=== PATIENT | male | born 1950 | race Caucasian/White ===

== ENCOUNTER 2017-07-24 13:31 | Day surgery (SDC) | payer MEDICARE ==
[~2017-07-24] VITALS: Ht 188 cm; Wt 105.6 kg
[~2017-07-24 13:31] MED LIST: Fish Oil 10001000 MG; ZESTORETIC 20-251 EA
== END 2017-07-24 16:00 | disposition home or self-care (01) ==
LOC: ORSCSDS 13:31
PROVIDERS: Internal Medicine Gastroenterology
PROC: 0DBK8ZX Excision of Ascending Colon, Via Natural or Artificial Opening Endoscopic, Diagnostic (ICD-10-PCS; principal; 2017-07-24 14:45)
PROC: 0DBL8ZX Excision of Transverse Colon, Via Natural or Artificial Opening Endoscopic, Diagnostic (ICD-10-PCS; principal; 2017-07-24 14:45)
DX: Z12.11 Encounter for screening for malignant neoplasm of colon (principal); D12.2 Benign neoplasm of ascending colon; K63.5 Polyp of colon; K64.8 Other hemorrhoids; E11.9 Type 2 diabetes mellitus without complications; I10 Essential (primary) hypertension; Z87.891 Personal history of nicotine dependence; Z79.899 Other long term (current) drug therapy
CPT/HCPCS: 82947; 88305; J7120

== ENCOUNTER 2019-02-03 08:26 | Day surgery (SDC) | payer MEDICARE ==
[~2019-02-03] VITALS: Ht 188 cm; Wt 101.5 kg
[~2019-02-03 08:26] MED LIST changes: +DICLOFENAC SOD100 G1 TOP; +THERA1 EACH PO; +ZESTORETIC 20-121 EA PO
--- NOTE | 2019-02-03 09:23 | NUR ---
Ambulatory in Day Surgery History, Chart, Medications and Allergies reviewed before start of procedure. Lungs clear T/O to Auscultation. Patient confirms NPO status and agrees with scheduled surgery. Pre-Op teaching done. Pt verbalizes understanding.
--- NOTE | 2019-02-03 15:04 | NUR ---
PT ARRIVED TO UNIT AT APROX 1445 FROM PACU. AQUACEL DRESSING TO R KNEE C/D/I, POLAR PACK/SCD'S IN PLACE. PT RATES PAIN 5/10-REPORTS TOLERABLE AT THIS TIME.
--- NOTE | 2019-02-03 18:09 | NUR ---
SHIFT SUMMARY PT POD 0 R TKA. PT MEDICATED FOR PAIN WITH SCHEDULED TYLENOL/TORADOL AND 2 ROXICODONE ONCE. NAUSEATED-MEDICATED WITH 4MG IV ZOFRAN. UP WITH THERAPY AND IN CHAIR, SBA W/FWW TO BATHROOM. VOIDING. CONTINUOUS ICE THERAPY, SCD'S IN PLACE.
[2019-02-04 04:27] LABS: BASOPHILS ABSOLUTE AUTO 0.01 K/mm3 (0.00-0.23); BASOPHILS PERCENT AUTO 0 % (0-2); EOSINOPHILS ABSOLUTE AUTO 0.01 K/mm3 (0.00-0.68); EOSINOPHILS PERCENT AUTO 0 % (0-6); Hematocrit 37.5 % (37.0-53.0); Hemoglobin 13.4 g/dL (13.5-17.5); IMMATURE GRAN ABSOLUTE AUTO 0.04 K/mm3 (0.00-0.10); IMMATURE GRAN PERCENT AUTO 0 % (0-1); LYMPHOCYTES ABSOLUTE AUTO 0.81 K/mm3 (0.84-5.20); LYMPHOCYTES PERCENT AUTO 9 % (21-46); MONOCYTES ABSOLUTE AUTO 0.76 K/mm3 (0.16-1.47); MONOCYTES PERCENT AUTO 8 % (4-13); Mean Corpuscular HGB 32.9 pg (26.0-34.0); Mean Corpuscular HGB Conc 35.7 g/dL (31.5-36.5); Mean Corpuscular Volume 92 fL (80-100); Mean Platelet Volume 9.2 fL (9.1-12.4); NEUTROPHILS ABSOLUTE AUTO 7.37 K/mm3 (1.96-9.15); NEUTROPHILS PERCENT AUTO 82 % (41-73); Platelet Count 156 K/mm3 (150-400); RDW Coefficient Variation 11.9 % (11.7-14.2); RDW Standard Deviation 39.6 fL (35.1-46.3); Red Blood Cell Count 4.07 M/mm3 (4.30-5.90)
--- NOTE | 2019-02-04 04:33 | NUR ---
SHIFT SUMMARY: PT POD #1 FOR RT TKA. AQUACEL CDI WITH POLAR PACK IN PLACE. PAIN MANAGED WITH 1 OXY AND SCHED TORADOL + TYLENOL PER EMAR. PT AMBULATED GAXIOLA ONCE. OUT OF BED TO BATHROOM T/O SHIFT WITH SBA AND FWW. GIVEN REGLAN FOR C/O OF NAUSEA ONCE. MILES REG DIET. COVERED WITH INSULIN PER SLIDING SCALE. PLAN FOR POSSIBLE DISCHARGE TODAY.
[2019-02-04 04:42] LABS: Anion Gap 6 mmol/L (6-16); Blood Urea Nitrogen 20 mg/dL (8-24); Bun/Creatinine Ratio 18.3 (12.0-20.0); CO2, Blood 27 mmol/L (21-32); Calcium, Blood 8.4 mg/dL (8.5-10.1); Chloride, Blood 103 mmol/L (98-108); Creatinine, Blood 1.09 mg/dL (0.60-1.20); Glomerular Filtration Rate >60 (60-); Glucose, Blood 174 mg/dL (70-99); Magnesium, Blood 1.8 mg/dL (1.6-2.4); Potassium, Blood 4.1 mmol/L (3.5-5.5); Sodium, Blood 136 mmol/L (136-145)
[2019-02-04] MEDS ORDERED: OXYC5 PO (07:45)
[2019-02-04] MEDS ORDERED: ASPI325EC PO (08:59)
[2019-02-04] MEDS ORDERED: ACET500 PO (08:59)
--- NOTE | 2019-02-04 09:28 | NUR ---
DISCHARGE PT AND EDUCATED ON AND RECEIVED PRINTED DC INSTRUCTIONS AND VERB AN UNDERSTANDING. HARD RX FOR OXYCODONE GIVEN TO PT. X2 AQUACEL DRESSINGS GIVEN TO PT. PT AND VERB THAT THEY HAVE AN UNDERSTANDING ON HOW TO USE THE POLAR PACK. F/U APPT IN PLACE. IV DC'D. PT SENT HOME WITH ALL PERSONAL BELONGINGS AND ESCORTED OUT VIA W/C.
== END 2019-02-04 09:22 | disposition home or self-care (01) ==
LOC: ORSCMMR 08:26 → ORD 10:45 → SURS 14:45 → ORSCMMR 02-04 09:22 → SURS 02-04 09:22 → ORD 03-07 07:30
PROVIDERS: Orthopaedic Surgery
PROC: 0SRC0J9 Replacement of Right Knee Joint with Synthetic Substitute, Cemented, Open Approach (ICD-10-PCS; principal; 2019-02-03 10:45)
DX: M17.11 Unilateral primary osteoarthritis, right knee (principal); I10 Essential (primary) hypertension; E11.9 Type 2 diabetes mellitus without complications; Z79.899 Other long term (current) drug therapy
CPT/HCPCS: 36415; 73560-RT; 80048; 82947; 83735; 85025; 88300; 97110; 97116; 97162; 97530; C1713; C1776; J0171; J0690; J0735; J1100; J1815; J1885; J2250; J2405; J2704; J2765; J2795; J3010; J7120

== ENCOUNTER 2020-06-14 22:02 | Emergency (ER) | payer MEDICARE ==
[~2020-06-14] VITALS: Ht 185.4 cm; Wt 101.6 kg
[~2020-06-14 22:02] MED LIST changes: +ACET500 PO; +ASPI325EC PO; +OXYC5 PO
[2020-06-14 22:29] LABS: Source, Urine Catheter
[2020-06-14 22:32] LABS: Appearance, Urine Hazy (Clear); Bilirubin, Urine Neg (Neg); Blood, Urine 5+ (Neg); Color, Urine Yellow (P-Yellow); Glucose Qualitative, Urine 1+ (Neg); Ketones, Urine 1+ (Neg); Leukocyte Esterase, Urine 1+ (Neg); Nitrite, Urine Neg (Neg); Protein, Urine 3+ (Neg); Urobilinogen, Urine NORM (Normal)
[2020-06-14 23:02] LABS: Bacteria Mod /hpf; Red Blood Cells, Urine 50-100 /hpf (0-2); Squamous Epithelial Cells Rare /hpf (Few)
[2020-06-17] MEDS ORDERED: BELPTAB PO (08:24)
== END 2020-06-14 22:56 | disposition home or self-care (01) ==
LOC: ER 22:02
PROVIDERS: Physician Assistant
DX: R33.9 Retention of urine, unspecified (principal); Z79.82 Long term (current) use of aspirin; Z79.899 Other long term (current) drug therapy
CPT/HCPCS: 51702; 81001; 87086; 99283-25

== ENCOUNTER 2020-06-17 09:34 | Emergency (ER) | payer MEDICARE ==
[~2020-06-17] VITALS: Ht 185.4 cm; Wt 101.6 kg
[~2020-06-17 09:34] MED LIST changes: +BELPTAB PO
[2020-06-17] MEDS ORDERED: CIPR500 PO (15:53)
== END 2020-06-17 10:37 | disposition home or self-care (01) ==
LOC: ER 09:34
DX: T83.031A Leakage of indwelling urethral catheter, initial encounter (principal); Z79.899 Other long term (current) drug therapy; Z79.82 Long term (current) use of aspirin; Z98.890 Other specified postprocedural states
CPT/HCPCS: 51700; 99282-25

== ENCOUNTER 2020-06-17 12:42 | Emergency (ER) | payer MEDICARE ==
[~2020-06-17] VITALS: Ht 185.4 cm; Wt 101.6 kg
[2020-06-17 15:31] LABS: Source, Urine Catheter
[2020-06-17 15:33] LABS: Appearance, Urine Cloudy (Clear); Bilirubin, Urine Neg (Neg); Blood, Urine 5+ (Neg); Color, Urine Red (P-Yellow); Glucose Qualitative, Urine Neg (Neg); Ketones, Urine Neg (Neg); Leukocyte Esterase, Urine 3+ (Neg); Nitrite, Urine Neg (Neg); Protein, Urine 3+ (Neg); Specific Gravity, Urine 1.015 (1.003-1.022); Urobilinogen, Urine NORM (Normal)
[2020-06-17 15:45] LABS: Bacteria Mod /hpf; Red Blood Cells, Urine TNTC /hpf (0-2); Squamous Epithelial Cells Not Seen /hpf (Few)
[2020-06-17] MEDS ORDERED: CIPR500 PO (15:53)
== END 2020-06-17 16:06 | disposition home or self-care (01) ==
LOC: ER 12:42
PROVIDERS: Physician Assistant
DX: N39.0 Urinary tract infection, site not specified (principal); Z79.82 Long term (current) use of aspirin; Z79.899 Other long term (current) drug therapy
CPT/HCPCS: 81001; 87077; 87086; 87186; 99283-25

== ENCOUNTER 2023-07-17 07:47 | Day surgery (SDC) | payer MEDICARE ==
[~2023-07-17] VITALS: Ht 188 cm; Wt 87.5 kg
[~2023-07-17 07:47] MED LIST changes: +CIPR500 PO; +METO25ER PO; +TAMS.4ER PO
[2023-07-17 09:14] VITALS: BP 139/77
--- NOTE | 2023-07-17 09:53 | NUR ---
07/17/23 0953 Lorraine Avila HISTORY, CHART, MEDICATIONS AND ALLERGIES REVIEWED BEFORE START OF PROCEDURE. PATIENT CONFIRMS NPO STATUS AND AGREES WITH SCHEDULED PROCEDURE. 3-LEAD EKG REVIEWED WITH PHYSICIAN PRIOR TO START OF PROCEDURE. MONITOR INTACT WITH CONTINUOUS PULSE OXIMETRY,CAPNOGRAPHY, 3-LEAD EKG, INTERMITTENT BP. SUPPLEMENTAL O2 TO BE TITRATED THROUGHOUT PROCEDURE TO MAINTAIN O2 SATURATION ABOVE 90%. PATIENT DETERMINED TO BE ASA APPROPRIATE FOR PROPOFOL SEDATION PRIOR TO START OF PROCEDURE BY DR. ROSE. MALLAMPATI CLASS 2 AIRWAY: COMPLETE VISUALIZATION OF THE UVULA.
[2023-07-17 10:22] VITALS: BP 119/99
[2023-07-17 10:30] VITALS: BP 119/70
--- NOTE | 2023-07-17 10:42 | NUR ---
Patient up to Ambulate independently. Gait steady. Discharge instructions reviewed with patient. Patient verbalizes understanding. Copy given to patient to take home. Patient States Post-Procedure ride home has been arranged with . Discharged via wheelchair to private car for ride home.
== END 2023-07-17 10:42 | disposition home or self-care (01) ==
LOC: ORSCMMR 07:47 → ORD 09:30 → ORSCMMR 10:42
PROVIDERS: Internal Medicine Gastroenterology
PROC: 0DBN8ZX Excision of Sigmoid Colon, Via Natural or Artificial Opening Endoscopic, Diagnostic (ICD-10-PCS; principal; 2023-07-17 09:30)
PROC: 0DBL8ZX Excision of Transverse Colon, Via Natural or Artificial Opening Endoscopic, Diagnostic (ICD-10-PCS; principal; 2023-07-17 09:30)
DX: Z12.11 Encounter for screening for malignant neoplasm of colon (principal); Z86.010 Personal history of colon polyps; Z86.79 Personal history of other diseases of the circulatory system; K63.5 Polyp of colon; E11.9 Type 2 diabetes mellitus without complications; Z79.899 Other long term (current) drug therapy
CPT/HCPCS: 82947; 88305; J2704; J7120

== ENCOUNTER 2024-05-17 17:45 | Observation (INO) | payer MEDICARE ==
[~2024-05-17] VITALS: Ht 188 cm; Wt 90.5 kg
[~2024-05-17 17:45] MED LIST changes: +CefTRIAXone Sodium 1,000 MG in NS 100 ML IV ONE; -HYDR1TAB94 PO
[2024-05-17] MEDS ORDERED: CefTRIAXone Sodium 1,000 MG in NS 100 ML IV ONE (18:40)
[2024-05-17] MEDS ORDERED: MetroNIDAZOLE 500MG/NS 100 ml 100 ML IV ONE (18:40)
[2024-05-17] MEDS ORDERED: Ketorolac Tromethamine 15mg Vial IV ONE (19:05)
[2024-05-17] MEDS ORDERED: Morphine Sulfate 4 MG/1 ML Injection IV PRN (20:10)
[2024-05-17] MEDS ORDERED: Ondansetron HCl 2 MG / ML 2ML Vial IV PRN (20:10)
[2024-05-17] MEDS ORDERED: NS 1,000 ML IV SCH ×2 (20:15→22:25)
[2024-05-17 21:15] VITALS: BP 117/84
[2024-05-17] MEDS ORDERED: FLU VACC TS2024-25(6MOS UP)/PF 45 MCG/0.5 ML SYRINGE IM ONE (21:45)
--- NOTE | 2024-05-17 21:50 | NUR ---
ARRIVAL PT NEW ADMIT FROM ER. ARRIVED A/OX4, INDEP IN ROOM. PT REPORTS HIP TO HIP LOWER ABD DISCOMFORT. DENIES PASSING FLATTUS TODAY, 1 EPISODE OF EMESIS. PLAN TO BE NPO AT 0000 FOR SURGERY IN THE AM.
[2024-05-18] VITALS (15 sets, daily range): BP systolic 104–146; BP diastolic 56–86
[2024-05-18] MEDS ORDERED: MetroNIDAZOLE 500MG/NS 100 ml 100 ML IV SCH (02:00)
--- NOTE | 2024-05-18 04:52 | NUR ---
SHIFT SUMMARY VSS. PT SLEPT ON AND OFF T/O THE NIGHT. NO ACUTE EVENTS NOTED. PT REMAINS INDEP IN ROOM, VOIDING INTO URINAL W/O DIFFICULTY. DENIES N/V T/O THE NIGHT. HAS BEEN NPO SINCE 0000 IN ANTICIPATION FOR SURGERY TODAY. WIPE DOWN COMPLETE. THE PT HAS NOT REQUIRED ANY PAIN MEDICATION, BUT REPORTS INTERMITTENT NAUSEA WHEN IV ABX ARE BEING ADMINISTERED. THE PT HAS DENIED NEEDING NAUSEA MEDICATION.
[2024-05-18] MEDS ORDERED: CefTRIAXone Sodium 1,000 MG in NS 100 ML IV SCH (06:00)
[2024-05-18] MEDS ORDERED: CefTRIAXone Sodium 1,000 MG in NS 100 ML IV ONE (06:00)
[2024-05-18] MEDS ORDERED: CefTRIAXone Sodium 1,000 MG in NS 50 ML IV ONE (06:00)
[2024-05-18] MEDS ORDERED: MetroNIDAZOLE 500MG/NS 100 ml 100 ML IV ONE (06:00)
[2024-05-18] MEDS ORDERED: Rocuronium Bromide 10 MG/ML 5ML Injection IV ONE (08:56)
[2024-05-18] MEDS ORDERED: FentaNYL Citrate 50 MCG/ML 2 ML Injection ONE (08:56)
[2024-05-18] MEDS ORDERED: propofoL 20 ML IV ONE (08:56)
[2024-05-18] MEDS ORDERED: Lactated Ringer's 1,000 ML IV ONE (09:44)
--- NOTE | 2024-05-18 10:14 | NUR ---
PATIENT INTO pacu PREOP FROM SURGICAL FLOOR. DENIES PAIN, C/O NAUSEA. PATINET WITH GLUCOSE MONITOR TO LEFT POSTERIOR SHOULDER. REPORTS HIS BLOOD SUGAR WAS 150 ABOUT 1 HOUR AGO. IV PRESENT TO RAC 20 GAUGE.PATENT.
[2024-05-18] MEDS ORDERED: Bupivacaine 0.5% HCl 5 MG/ML 30MLVIAL ONE (11:12)
[2024-05-18] MEDS ORDERED: Ondansetron HCl 2 MG / ML 2ML Vial ONE (11:38)
[2024-05-18] MEDS ORDERED: Dexamethasone Sod Phos 10 MG/ML 1ML VIAL ONE (11:38)
[2024-05-18] MEDS ORDERED: Sugammadex Sodium 200 MG/2ML SDV (100 MG/ML) ONE (11:42)
[2024-05-18] MEDS ORDERED: Labetalol HCL 5 MG/ML 4ML Injection (Single Dose) ONE (12:03)
[2024-05-18] MEDS ORDERED: HYDROcodone 5-APAP 325 TAB PO PRN (13:25)
--- NOTE | 2024-05-18 14:00 | NUR ---
PT RETURNED FROM PACU AT APPROXIMATELY 1305. PT ALERT/ORIENTED UPON ARRIVAL. PT DENIED PAIN. LAP SITES WNL, COVERED WITH GAUZE AND TEGADERM, NO DRAINAGE. VSS. FAMILY AT BEDSIDE FOR SUPPORT. SPOKE WITH DR. GOLDSMITH REGARDING PT'S HX OF DIABETES, DR. GOLDSMITH DECLINED NEED FOR CBG CHECKS SINCE PT IS DIET CONTROLLED AT HOME.
[2024-05-18] MEDS ORDERED: HYDR1TAB94 PO ×2 (17:24)
--- NOTE | 2024-05-18 17:50 | NUR ---
DISCHARGE PT PROVIDED WITH WRITTEN AND VERBAL DISCHARGE INSTRUCTIONS, HE AND HIS REPORTED UNDERSTANDING. PRIOR TO DISCHARGE PT WAS ABLE TO VOID, AMBULATE, TOLERATE PO AND PAIN MANAGED. VSS AT TIME OF DISCHARGE. PT USES AN OVER THE COUNTER CONTINUOUS GLUCOSE MONITOR AT BASELINE. SINCE PT MONITORS GLUCOSE LEVELS HE WAS EDUCATED THAT BLOOD GLUCOSE CAN BE ELEVATED AFTER SURGERY OR DROP IF HE HAS POOR PO INTAKE. PT EDUCATED THAT HIS BLOOD GLUCOSE LEVELS SHOULD NORMALIZE OVER THE NEXT DAY OR TWO AND TO NOTIFY HIS PCP IF THIS DOES NOT HAPPEN. PT VERBALIZED UNDERSTANDING. PT ASSISTED OUT IN W/C AT APPROXIMATELY 1750.
[2024-05-19 17:38] VITALS: BP 113/69
== END 2024-05-18 17:55 | disposition home or self-care (01) ==
LOC: ER 17:45 → ERHOLD 20:08 → SURS 20:08 → ER 21:13 → SURS 21:51
PROVIDERS: ADMIT Surgery
DX: K35.80 Unspecified acute appendicitis (principal); K42.9 Umbilical hernia without obstruction or gangrene; I10 Essential (primary) hypertension; E11.9 Type 2 diabetes mellitus without complications; Z87.891 Personal history of nicotine dependence; Z79.899 Other long term (current) drug therapy
CPT/HCPCS: 88304; 93005; 93010; 96365; 96366; 96367; 96375; 99284-25; G0378; J0696; J1100; J1885; J2405; J2704; J3010; J7030; J7120

== ENCOUNTER → 2024-05-17 | Outpatient (CLI) | payer MEDICARE ==
[~2024-05-17] MED LIST changes: +HYDR1TAB94 PO
[2024-05-17 15:38] LABS: BASOPHILS ABSOLUTE AUTO 0.01 K/mm3 (0.00-0.23); BASOPHILS PERCENT AUTO 0 % (0-2); EOSINOPHILS ABSOLUTE AUTO 0.01 K/mm3 (0.00-0.68); EOSINOPHILS PERCENT AUTO 0 % (0-6); Hematocrit 41.9 % (37.0-53.0); Hemoglobin 14.5 g/dL (13.5-17.5); IMMATURE GRAN ABSOLUTE AUTO 0.04 K/mm3 (0.00-0.10); IMMATURE GRAN PERCENT AUTO 0 % (0-1); LYMPHOCYTES ABSOLUTE AUTO 0.58 K/mm3 (0.84-5.20); LYMPHOCYTES PERCENT AUTO 6 % (21-46); MONOCYTES ABSOLUTE AUTO 0.44 K/mm3 (0.16-1.47); MONOCYTES PERCENT AUTO 4 % (4-13); Mean Corpuscular HGB 32.2 pg (26.0-34.0); Mean Corpuscular HGB Conc 34.6 g/dL (31.5-36.5); Mean Corpuscular Volume 93 fL (80-100); Mean Platelet Volume 8.6 fL (9.1-12.4); NEUTROPHILS ABSOLUTE AUTO 8.96 K/mm3 (1.96-9.15); NEUTROPHILS PERCENT AUTO 89 % (41-73); Platelet Count 176 K/mm3 (150-400); RDW Coefficient Variation 12.7 % (11.7-14.2); White Blood Cell Count 10.04 K/mm3 (4.00-11.30)
[2024-05-17 15:47] LABS: Albumin, Blood 4.5 g/dL (3.4-5.0); Albumin/Globulin Ratio 1.2 (0.8-1.8); Bilirubin, Total 0.8 mg/dL (0.1-1.0); Bun/Creatinine Ratio 20.6 (12.0-20.0); Calcium, Blood 9.7 mg/dL (8.5-10.1); Creatinine, Blood 1.26 mg/dL (0.60-1.20); Globulin, Blood 3.8 g/dL (2.2-4.0); Total Protein, Blood 8.3 g/dL (6.4-8.2)
== END | disposition home or self-care (01) ==
LOC: LAB 15:33 → LAB SHORT 15:33
PROVIDERS: Emergency Medicine
DX: R10.31 Right lower quadrant pain (principal)
CPT/HCPCS: 80053; 83690; 85025